=== PATIENT | male | born 1975 | race Caucasian/White ===

== ENCOUNTER → 2017-11-14 | Outpatient (CLI) | payer MEDICARE, OTHER ==
[~2017-11-14] MED LIST: ACET500 PO; ALBU90OI INH; ASPI81CH PO; ASPI81EC PO; BENZT; CARB100ER PO; CARB200; CARB200ER PO; CHOLESTYRAMINE; CHOLP; CITA20; CLIN1TS; CLON.1 PO; CLON.3; CLON.5 PO; CYAN1000 PO; Ceftriaxone2 G1 IV; DOC-Q-LACE; DOCU100 PO; ESCI20 PO; EZET10; EZET10 PO; FENO145 PO; FIBER POWDER; FISH1000; FISH1000 PO; FOLI1 PO; HYDHOMSY PO; Hair, Skin & N1 EACH PO; IFEREX PO; Kristalose20 GM PO; LEVSOD75 PO; LISI5 PO; LITH300C PO; LITH300ER PO; LITH450ER; Lisinopril2.5 MG PO; MULVITMINE PO; NALT50; NALT50 PO; NIAC500 PO; OSEL75CA PO; PHENY100ER PO; POLY500; POLY500 PO; PROM25 PO; QUET100; QUET200; QUET200 PO; QUET25 PO; QUET300; ROSU10TA; ROSU10TA PO; SENN187 PO; SENNP; Senna8.6 MG PO; TETR.05OPS; TETR.05OPS OU; TOLN1TC; TOPI100; TOPI100 PO; TOPI25C; VITAMIN D35000 UNIT PO; [UNRECOGNIZED DRUG - CODE] BOTHEYES; [UNRECOGNIZED DRUG - OTHER]
== END ==
LOC: LAB SHORT 14:07 → PLD 14:07
DX: D48.5 Neoplasm of uncertain behavior of skin (principal)
CPT/HCPCS: 88304

== ENCOUNTER → 2018-08-23 | Outpatient (CLI) | payer MEDICARE, OTHER | END | disposition home or self-care (01) | LOC: LAB 14:33 → LAB SHORT 14:33 | DX: M79.672 Pain in left foot (principal); M21.6X9 Other acquired deformities of unspecified foot | CPT/HCPCS: 87070; 87075; 87077; 87205 ==

== ENCOUNTER 2019-08-03 00:24 | Emergency (ER) | payer MEDICARE, OTHER ==
[~2019-08-03] VITALS: Ht 165.1 cm; Wt 90.7 kg
[~2019-08-03 00:24] MED LIST changes: +FENO160 PO
[2019-08-03] MEDS ORDERED: LAMO100 PO (00:39)
[2019-08-03] MEDS ORDERED: DULO60 PO (00:40)
[2019-08-03] MEDS ORDERED: SODBIC650 PO (00:50)
== END 2019-08-03 01:12 | disposition home or self-care (01) ==
LOC: ER 00:24
DX: S01.112A Laceration without foreign body of left eyelid and periocular area, initial encounter (principal); I10 Essential (primary) hypertension; E78.5 Hyperlipidemia, unspecified; G40.909 Epilepsy, unspecified, not intractable, without status epilepticus; F20.9 Schizophrenia, unspecified; F31.9 Bipolar disorder, unspecified; E03.9 Hypothyroidism, unspecified; Z79.899 Other long term (current) drug therapy; Z79.82 Long term (current) use of aspirin; Z87.891 Personal history of nicotine dependence; W22.8XXA Striking against or struck by other objects, initial encounter; Y92.89 Other specified places as the place of occurrence of the external cause
CPT/HCPCS: 12011; 99283-25

== ENCOUNTER 2020-06-24 10:07 | Emergency (ER) | payer MEDICARE, OTHER ==
[~2020-06-24] VITALS: Ht 165.1 cm; Wt 92.1 kg
[~2020-06-24 10:07] MED LIST changes: +DULO60 PO; +LAMO100 PO; +SODBIC650 PO
[2020-06-24 10:45] LABS: BASOPHILS ABSOLUTE AUTO 0.07 K/mm3 (0.00-0.23); BASOPHILS PERCENT AUTO 1 % (0-2); EOSINOPHILS ABSOLUTE AUTO 0.09 K/mm3 (0.00-0.68); EOSINOPHILS PERCENT AUTO 2 % (0-6); Hematocrit 37.7 % (37.0-53.0); Hemoglobin 12.3 g/dL (13.5-17.5); IMMATURE GRAN ABSOLUTE AUTO 0.01 K/mm3 (0.00-0.10); IMMATURE GRAN PERCENT AUTO 0 % (0-1); LYMPHOCYTES PERCENT AUTO 28 % (21-46); MONOCYTES ABSOLUTE AUTO 0.56 K/mm3 (0.16-1.47); MONOCYTES PERCENT AUTO 11 % (4-13); Mean Corpuscular HGB 30.8 pg (26.0-34.0); Mean Corpuscular HGB Conc 32.6 g/dL (31.5-36.5); Mean Corpuscular Volume 94 fL (80-100); Mean Platelet Volume 9.5 fL (9.1-12.4); NEUTROPHILS ABSOLUTE AUTO 2.85 K/mm3 (1.96-9.15); NEUTROPHILS PERCENT AUTO 57 % (41-73); Platelet Count 322 K/mm3 (150-400); RDW Coefficient Variation 12.1 % (11.7-14.2); RDW Standard Deviation 42.5 fL (35.1-46.3); White Blood Cell Count 4.98 K/mm3 (4.00-11.30)
[2020-06-24 11:05] LABS: Alanine Aminotransfer (ALT/SGP 37 U/L (12-78); Albumin, Blood 3.9 g/dL (3.4-5.0); Albumin/Globulin Ratio 1.1 (0.8-1.8); Alk Phos 57 U/L (50-136); Anion Gap 6 mmol/L (6-16); Aspartate Aminotrans (AST/SGOT 20 U/L (12-37); Bilirubin, Total 0.3 mg/dL (0.1-1.0); Blood Urea Nitrogen 9 mg/dL (8-24); CO2, Blood 23 mmol/L (21-32); Calcium, Blood 9.3 mg/dL (8.5-10.1); Chloride, Blood 114 mmol/L (98-108); Globulin, Blood 3.7 g/dL (2.2-4.0); Glomerular Filtration Rate >60 (60-); Glucose, Blood 81 mg/dL (70-99); Sodium, Blood 143 mmol/L (136-145); Total Protein, Blood 7.6 g/dL (6.4-8.2); Troponin I <0.015 ng/mL (0.000-0.040)
== END 2020-06-24 12:24 | disposition home or self-care (01) ==
LOC: ER 10:07
PROVIDERS: Emergency Medicine
DX: R07.89 Other chest pain (principal); Z79.899 Other long term (current) drug therapy; Z79.82 Long term (current) use of aspirin
CPT/HCPCS: 36415; 71046; 80053; 84484; 85025; 93005; 93010; 99285-25

== ENCOUNTER 2020-08-01 08:57 | Day surgery (SDC) | payer MEDICARE, OTHER ==
[~2020-08-01] VITALS: Ht 165.1 cm; Wt 87.3 kg
[~2020-08-01 08:57] MED LIST changes: +Aspir 8181 MG PO
--- NOTE | 2020-08-01 12:02 | NUR ---
08/01/20 1202 Chey Ayala C/O ONE EMESIS OF SALIVA, RX'D WITH IV REGLAN. NAUSEA AND WRETCHING SUBSIDED.
== END 2020-08-01 12:50 | disposition home or self-care (01) ==
LOC: ORSCSDS 08:57
PROVIDERS: Surgery
PROC: 0WUF0JZ Supplement Abdominal Wall with Synthetic Substitute, Open Approach (ICD-10-PCS; principal; 2020-08-01 10:15)
DX: K42.9 Umbilical hernia without obstruction or gangrene (principal); I10 Essential (primary) hypertension; E03.9 Hypothyroidism, unspecified; E78.00 Pure hypercholesterolemia, unspecified; G47.33 Obstructive sleep apnea (adult) (pediatric); F31.9 Bipolar disorder, unspecified; F20.9 Schizophrenia, unspecified; Z87.891 Personal history of nicotine dependence; Z79.899 Other long term (current) drug therapy
CPT/HCPCS: C1781; J0690; J1100; J1885; J2250; J2405; J2704; J2765; J3010; J7120

== ENCOUNTER 2021-06-22 20:14 | Emergency (ER) | payer MEDICARE, OTHER ==
[~2021-06-22] VITALS: Ht 165.1 cm; Wt 81.7 kg
[2021-06-22 20:54] LABS: BASOPHILS ABSOLUTE AUTO 0.08 K/mm3 (0.00-0.23); BASOPHILS PERCENT AUTO 1 % (0-2); EOSINOPHILS ABSOLUTE AUTO 0.14 K/mm3 (0.00-0.68); EOSINOPHILS PERCENT AUTO 2 % (0-6); Hemoglobin 12.4 g/dL (13.5-17.5); IMMATURE GRAN ABSOLUTE AUTO 0.03 K/mm3 (0.00-0.10); IMMATURE GRAN PERCENT AUTO 0 % (0-1); LYMPHOCYTES ABSOLUTE AUTO 2.83 K/mm3 (0.84-5.20); LYMPHOCYTES PERCENT AUTO 31 % (21-46); MONOCYTES ABSOLUTE AUTO 0.84 K/mm3 (0.16-1.47); MONOCYTES PERCENT AUTO 9 % (4-13); Mean Corpuscular HGB 31.7 pg (26.0-34.0); Mean Corpuscular HGB Conc 34.4 g/dL (31.5-36.5); Mean Corpuscular Volume 92 fL (80-100); Mean Platelet Volume 9.9 fL (9.1-12.4); NEUTROPHILS ABSOLUTE AUTO 5.35 K/mm3 (1.96-9.15); NEUTROPHILS PERCENT AUTO 58 % (41-73); Platelet Count 386 K/mm3 (150-400); RDW Coefficient Variation 12.1 % (11.7-14.2); RDW Standard Deviation 40.7 fL (35.1-46.3); Red Blood Cell Count 3.91 M/mm3 (4.30-5.90); White Blood Cell Count 9.27 K/mm3 (4.00-11.30)
[2021-06-22 21:16] LABS: Alanine Aminotransfer (ALT/SGP 34 U/L (12-78); Albumin, Blood 3.8 g/dL (3.4-5.0); Alk Phos 57 U/L (50-136); Anion Gap 6 mmol/L (6-16); Aspartate Aminotrans (AST/SGOT 22 U/L (12-37); Bilirubin, Total 0.2 mg/dL (0.1-1.0); Blood Urea Nitrogen 15 mg/dL (8-24); Bun/Creatinine Ratio 14.7 (12.0-20.0); CO2, Blood 22 mmol/L (21-32); Calcium, Blood 9.6 mg/dL (8.5-10.1); Chloride, Blood 113 mmol/L (98-108); Creatinine, Blood 1.02 mg/dL (0.60-1.20); Glomerular Filtration Rate >60 (60-); Glucose, Blood 183 mg/dL (70-99); Potassium, Blood 3.2 mmol/L (3.5-5.5); Sodium, Blood 141 mmol/L (136-145); Total Protein, Blood 7.8 g/dL (6.4-8.2)
[2021-06-22 23:51] LABS: Lithium 0.49 mmol/L (0.60-1.20)
== END 2021-06-23 01:45 | disposition home or self-care (01) ==
LOC: ER 20:14
PROVIDERS: Emergency Medicine; Physician Assistant
DX: E87.6 Hypokalemia (principal); K59.00 Constipation, unspecified; R11.2 Nausea with vomiting, unspecified; E78.5 Hyperlipidemia, unspecified; E03.9 Hypothyroidism, unspecified; I10 Essential (primary) hypertension; Z79.899 Other long term (current) drug therapy
CPT/HCPCS: 36415; 74018; 80053; 80178; 83690; 83735; 84145; 85025; 93005; 93010; 96374; 96375; 96376; 99285-25; A9270; J2405; J2550; J7030

== ENCOUNTER 2022-12-08 06:13 | Day surgery (SDC) | payer MEDICARE, OTHER ==
[~2022-12-08] VITALS: Ht 165.1 cm; Wt 82.4 kg
--- NOTE | 2022-12-08 08:32 | NUR ---
12/08/22 0832 Harpal Guallpa LIDOCAINE 2% 1:100,000 DILUTED 1:1 WITH NORMAL SALINE TO MAKE LIDOCAINE 1% 1:200,000 FOR INJECTION AT OPSITE BY DR MCKEON INJECTED 2ML PREOPERATIVELY
[2022-12-08 11:14] VITALS: BP 157/88
--- NOTE | 2022-12-08 11:27 | NUR ---
12/08/22 1127 CONTRERAS CORONA PT VOMITING BILE AND CLEAR SPUTUM. SCOPE PATCH PLACED BEHING RIGHT EAR. SLIGHT BLEEDING WAS NOTED WHEN ADMIT TO SDU, FROM INCISION UNDER BRYANNA. 5ML. NOW LONGER BLEEDING. PT CURRENTLY SLEEPING AGAIN. WILL KEEP PT IN BED AT THIS TIME. HOB ELEVATED.
== END 2022-12-08 12:55 | disposition home or self-care (01) ==
LOC: ORSCSDS 06:13
PROVIDERS: Otolaryngology
PROC: 0NR607Z Replacement of Left Temporal Bone with Autologous Tissue Substitute, Open Approach (ICD-10-PCS; principal; 2022-12-08 07:30)
DX: H71.02 Cholesteatoma of attic, left ear (principal); H90.6 Mixed conductive and sensorineural hearing loss, bilateral; I10 Essential (primary) hypertension; G47.33 Obstructive sleep apnea (adult) (pediatric); G40.909 Epilepsy, unspecified, not intractable, without status epilepticus; Z79.899 Other long term (current) drug therapy; E03.9 Hypothyroidism, unspecified; E78.5 Hyperlipidemia, unspecified; F31.9 Bipolar disorder, unspecified
CPT/HCPCS: 82947; A9270; J0171; J0330; J2250; J2405; J2704; J3010; J3301; J7120

== ENCOUNTER 2023-09-29 09:10 | Day surgery (SDC) | payer MEDICARE, OTHER ==
[~2023-09-29] VITALS: Ht 165.1 cm; Wt 82.5 kg
[2023-09-29] MEDS ORDERED: Lactated Ringer's 1,000 ML IV ONE ×2 (09:13→10:14)
[2023-09-29] MEDS ORDERED: Midazolam HCL 1 MG/ML 5MLVIAL ONE (11:03)
[2023-09-29] MEDS ORDERED: propofoL 50 ML IV ONE ×2 (11:04→12:04)
[2023-09-29 13:07] VITALS: BP 135/83
== END 2023-09-29 13:15 | disposition home or self-care (01) ==
LOC: ORSCSDS 09:10
PROVIDERS: Internal Medicine Gastroenterology
PROC: 0DBL8ZX Excision of Transverse Colon, Via Natural or Artificial Opening Endoscopic, Diagnostic (ICD-10-PCS; principal; 2023-09-29 10:30)
DX: K62.5 Hemorrhage of anus and rectum (principal); K59.00 Constipation, unspecified; D12.3 Benign neoplasm of transverse colon; K64.4 Residual hemorrhoidal skin tags; E78.5 Hyperlipidemia, unspecified; G47.33 Obstructive sleep apnea (adult) (pediatric); I12.9 Hypertensive chronic kidney disease with stage 1 through stage 4 chronic kidney disease, or unspecified chronic kidney disease; N18.9 Chronic kidney disease, unspecified; E03.9 Hypothyroidism, unspecified; G40.909 Epilepsy, unspecified, not intractable, without status epilepticus; F31.9 Bipolar disorder, unspecified; F20.9 Schizophrenia, unspecified; Z79.899 Other long term (current) drug therapy; Z79.82 Long term (current) use of aspirin
CPT/HCPCS: 88305; J2250; J2704; J7120

== ENCOUNTER → 2025-03-11 | Outpatient (CLI) | payer MEDICARE, OTHER ==
[2025-03-11 13:01] LABS: Protein, Urine Quantitative 8.4 mg/dL (0.0-11.9)
[2025-03-11 13:05] LABS: Microalbumin, Urine Quant. <5.000 mg/L (0.000-20.000)
== END ==
LOC: LAB SHORT 06:10 → LAB 06:10 → LAB FUT 03-06 16:35
PROVIDERS: Internal Medicine Nephrology
DX: N18.30 Chronic kidney disease, stage 3 unspecified (principal); N25.81 Secondary hyperparathyroidism of renal origin; E55.9 Vitamin D deficiency, unspecified; E78.00 Pure hypercholesterolemia, unspecified; R76.9 Abnormal immunological finding in serum, unspecified; R94.5 Abnormal results of liver function studies; R94.6 Abnormal results of thyroid function studies
CPT/HCPCS: 81050; 82043; 82570; 84156

== ENCOUNTER → 2025-06-17 | Outpatient (CLI) | payer MEDICARE, OTHER ==
[2025-06-17 09:12] LABS: Microalbumin, Urine Quant. 6.260 mg/L (0.000-20.000)
[2025-06-17 09:29] LABS: Protein, Urine Quantitative <5.0 mg/dL (0.0-11.9)
== END | disposition home or self-care (01) ==
LOC: LAB 07:30 → LAB SHORT 07:30 → LAB FUT 06-12 06:45
PROVIDERS: Internal Medicine Nephrology
DX: N18.2 Chronic kidney disease, stage 2 (mild) (principal); D63.1 Anemia in chronic kidney disease; N25.81 Secondary hyperparathyroidism of renal origin; E55.9 Vitamin D deficiency, unspecified; E78.00 Pure hypercholesterolemia, unspecified; R76.9 Abnormal immunological finding in serum, unspecified; R94.5 Abnormal results of liver function studies; R94.6 Abnormal results of thyroid function studies
CPT/HCPCS: 81050; 82043; 84156